=== PATIENT | male | born 1950 | race Caucasian/White ===

== ENCOUNTER 2025-02-06 12:13 | Emergency (ER) | payer MEDICAID ==
[2025-02-06] VITALS (9 sets, daily range): BP systolic 122–151; BP diastolic 66–99
[~2025-02-06] VITALS: Ht 170.2 cm; Wt 92.0 kg
[2025-02-06] MEDS ORDERED: TAMSULOSIN0.4 MG PO (12:29)
[2025-02-06] MEDS ORDERED: ATORVASTATIN CA10 MG PO (12:30)
[2025-02-06] MEDS ORDERED: OMEPRAZOLE20 MG PO (12:31)
[2025-02-06] MEDS ORDERED: LISINOPRIL10 MG PO (12:31)
[2025-02-06] MEDS ORDERED: MELATONIN PO (12:33)
[2025-02-06 13:14] LABS: BASO% 0.4 % (0-3); EOS% 0.4 % (0-8); HEMATOCRIT 42.2 % (39.0-50.0); HEMOGLOBIN 14.1 g/dl (14.0-18.0); IMMATURE GRANULOCYTES 0.2 % (0.0-5.0); LYMPH% 10.2 % (15-41); MEAN CELL VOLUME 90.2 fL CALC (80.0-100.0); MEAN CORPUSCULAR HGB 30.1 pG CALC (26.0-32.0); MEAN CORPUSCULAR HGB CONC 33.4 g/dL CAL (32.0-36.0); MONO% 5.9 % (2-13); NEUT# 7.03 thou/uL (1.82-7.42); NEUT% 82.9 % (42-76); RED BLOOD COUNT 4.68 mill/uL (4.70-6.10); RED CELL DISTRI WIDTH 13.7 % (11.5-15.5)
[2025-02-06 13:25] LABS: PROTHROMBIN TIME 10.6 SECONDS (9.0-12.5)
[2025-02-06 13:26] LABS: ALBUMIN 4.1 g/dL (3.2-5.0); ALKALINE PHOSPHATASE 70 u/l (38-126); ANION GAP 11 (6-22 (CALC)); BILIRUBIN, TOTAL 0.7 mg/dL (0.2-1.3); BUN 16 mg/dL (8-23); BUN/CREATININE RATIO 22 (12-20 (CALC)); CARBON DIOXIDE 25 mmol/l (22-30); CHLORIDE 103 mmol/l (95-108); CREATININE 0.7 mg/dL (0.7-1.3); ESTIMATED GFR 97 ML/MIN (>=90 (CALC)); POTASSIUM 3.8 mmol/l (3.5-5.1); SGOT/AST 29 u/l (19-48); SODIUM 135 mmol/l (137-146); TOTAL PROTEIN 6.9 g/dL (6.3-8.2)
[2025-02-06] MEDS ORDERED: MECLIZINE HCL 25 MG/TAB PO ONE (13:45)
[2025-02-06 14:26] LABS: URINE BILIRUBIN - DIPSTICK Negative (NEGATIVE); URINE BLOOD DIPSTICK Negative (NEGATIVE); URINE COLOR Yellow; URINE GLUCOSE - DIPSTICK Negative (NEGATIVE); URINE KETONE Negative (NEGATIVE); URINE LEUK ESTERASE Negative (NEGATIVE); URINE NITRITE - DIPSTICK Negative (Negative); URINE PROTEIN - DIPSTICK Negative (NEG-TRACE); URINE SPECIFIC GRAVITY 1.015; URINE UROBILINOGEN - DIPSTICK 0.2 E.U./dL (0.2)
[2025-02-06] MEDS ORDERED: MECLIZINE25 MG PO (14:32)
== END 2025-02-06 14:51 | disposition home or self-care (01) ==
LOC: ED 12:13
PROVIDERS: Clinical Nurse Specialist Emergency
DX: R42 Dizziness and giddiness (principal); I48.91 Unspecified atrial fibrillation